=== PATIENT | male | born 1945 | race Two or more races ===

== ENCOUNTER 2017-10-09 05:25 | Day surgery (SDC) | payer OTHER ==
[~2017-10-09 05:25] MED LIST: ALTACE10 MG PO; SYNTHROID88 MCG PO
== END 2017-10-09 15:20 | disposition home or self-care (01) ==
LOC: CIR.AMB 05:25
DX: K40.30 Unilateral inguinal hernia, with obstruction, without gangrene, not specified as recurrent (principal)

== ENCOUNTER 2024-10-29 15:52 | Emergency (ER) | payer OTHER ==
[~2024-10-29] VITALS: Ht 167.6 cm; Wt 78.9 kg
[2024-10-29] MEDS ORDERED: ELIQUIS5 MG PO (16:20)
[2024-10-29] MEDS ORDERED: AMIODARONE HCL100 MG PO (16:20)
[2024-10-29] MEDS ORDERED: SYNTHROID125 MCG PO (16:20)
[2024-10-29] MEDS ORDERED: TOPROL XL25 M1 PO (16:20)
[2024-10-29] MEDS ORDERED: ORPHENADRINE CITRATE 30 MG/ML AMPUL IM STA (16:38)
[2024-10-29] MEDS ORDERED: ORPHENADRINE CITRATE 30 MG/ML AMPUL ONE (16:44)
== END 2024-10-29 16:51 | disposition home or self-care (01) ==
LOC: ER 15:53
DX: M79.661 Pain in right lower leg (principal); Z88.0 Allergy status to penicillin
CPT/HCPCS: 96372; 99282; J2360

== ENCOUNTER → 2025-01-10 | Emergency (ER) | payer OTHER ==
[~2025-01-10] VITALS: Ht 167.6 cm; Wt 79.4 kg
[~2025-01-10] MED LIST changes: +AMIODARONE HCL100 MG PO; +ELIQUIS5 MG PO; +SYNTHROID125 MCG PO; +TOPROL XL25 M1 PO
== END | disposition home or self-care (01) ==
LOC: ER 09:52
DX: S80.02XA Contusion of left knee, initial encounter (principal); W18.39XA Other fall on same level, initial encounter; Y93.89 Activity, other specified; Y92.512 Supermarket, store or market as the place of occurrence of the external cause; Y99.9 Unspecified external cause status; I10 Essential (primary) hypertension; E03.9 Hypothyroidism, unspecified; Z88.8 Allergy status to other drugs, medicaments and biological substances